=== PATIENT | male | born 1955 | race Two or more races ===

== ENCOUNTER 2018-01-12 07:42 | Outpatient (CLI) | payer BC, OTHER ==
[~2018-01-12 07:42] MED LIST: ASPIRIN81 M1; LEVAQUIN500 MG PO; METFORMIN HCL1000 MG; VICTOZA 2-0.6 MG/0.1; [UNRECOGNIZED DRUG - OTHER]
== END 2018-01-12 07:46 | disposition home or self-care (01) ==
LOC: LAB 07:42
DX: E11.65 Type 2 diabetes mellitus with hyperglycemia (principal); E78.00 Pure hypercholesterolemia, unspecified; E03.8 Other specified hypothyroidism

== ENCOUNTER 2018-08-14 09:45 | Outpatient (CLI) | payer BC, OTHER | END 2018-08-14 10:56 | disposition home or self-care (01) | LOC: LAB 09:45 | DX: E11.65 Type 2 diabetes mellitus with hyperglycemia (principal); E78.00 Pure hypercholesterolemia, unspecified; N39.0 Urinary tract infection, site not specified ==